=== PATIENT | male | born 1980 | race African-American/Black ===

== ENCOUNTER → 2018-07-28 | Outpatient (CLI) | payer OTHER ==
--- NOTE | 2018-07-28 15:41 | KCIC ---
Indication:Abdominal pain TECHNIQUE: Grayscale, color Doppler and spectral waveform is of the abdomen obtained. COMPARISON:None FINDINGS: Pancreas and aorta not visualized due to overlying bowel gas. No gallstones, pericholecystic fluid or gallbladder wall thickening. Liver measures 16 cm in longest dimension and is mildly echogenic. Main portal vein is patent. CBD measures 3 mm in diameter and is within normal limits. Right kidney measures 11.47 m in length without hydronephrosis. Spleen is mildly enlarged measuring 14 cm in longest dimension. Left kidney measures 11.10 cm in length without hydronephrosis. IMPRESSION: 1. Mild splenomegaly. 2. Hepatic steatosis. 3. No cholelithiasis or sonographic evidence of acute cholecystitis. Electronically signed by: Jorden Quinteros DO (07/28/2018 3:37 PM) [id number]
== END | disposition home or self-care (01) ==
LOC: KCIC US 14:34
PROVIDERS: ATTEND Family Medicine
DX: K76.0 Fatty (change of) liver, not elsewhere classified (principal); R16.1 Splenomegaly, not elsewhere classified
CPT/HCPCS: 76700